=== PATIENT | male | born 1980 | race Caucasian/White ===

== ENCOUNTER 2016-09-04 22:53 | Inpatient (IN) | payer SELFPAY ==
--- NOTE | ~2016-09-04 | HP ---
Unit #: [id number] #: [id number] Patient: ANGY REEVES [id number] [place] [address] [id number] MR#: [id number] NAME: ANGY REEVES ROOM: P252 Age: 36 Sex: M Admission Date: 09/04/2016 : 1980 Attending Physician: Wayne Davila M.D. Admitting Physician: Wayne Davila M.D. Primary Care Physician: Primary Care Physician No HISTORY AND PHYSICAL HISTORY OF PRESENT ILLNESS Angy is a 36 year old admitted to [address] [place] [address] because of his drug use. He shoots heroin. PAST MEDICAL HISTORY Long history of opioid abuse to include IV heroin. PAST SURGICAL HISTORY Right shoulder. ALLERGIES No known drug allergies. SOCIAL HISTORY Smokes 1 pack per day. Denies alcohol. Admits to a long history of opioid abuse to include IV heroin. FAMILY HISTORY Medically noncontributory. REVIEW OF SYSTEMS CONSTITUTIONAL: No fever or chills. HEENT: Denies any sore throat, ear pain or runny nose. CARDIOVASCULAR: Denies chest pain, irregular heart rhythm or palpitations. CHEST: Denies shortness of breath or cough. No hemoptysis. GASTROINTESTINAL: Denies nausea, vomiting, diarrhea or chronic constipation. ENDOCRINE: Denies history of increased thirst or urination. No recent significant weight loss or gain. GENITOURINARY: Denies dysuria, frequency, or hematuria. SKIN: Denies any rashes. HEMATOLOGIC: Denies history of increased bleeding or bruising. MUSCULOSKELETAL: Denies any hot, swollen joints. No generalized muscle pain. NEUROLOGIC: Denies problems with vision or speech. No frequent, severe headaches. No numbness, tingling or weakness in any extremities. Denies loss of bladder or bowel control. CURRENT MEDICATIONS Detox protocol. PHYSICAL EXAMINATION GENERAL: Alert, well-nourished, in no apparent distress. Unit #: [id number] #: [id number] Patient: ANGY REEVES VITAL SIGNS: Blood pressure 130/82, heart rate 86, respirations 16, temperature 98.6. WEIGHT: 145. HEIGHT: 5 feet 10 inches. SKIN: Warm and dry without rash or lesion. HEENT: Normocephalic. TMs not viewed. Oral and nasal passages clear. Conjunctivae clear. PERRLA. EOMs intact. NECK: Supple without lymphadenopathy or thyromegaly. HEART: Regular rate and rhythm without murmur. LUNGS: Clear. ABDOMEN: Soft, nontender. : Not done. EXTREMITIES: No evidence of cyanosis, clubbing or edema. Moves all without focal deficit. NEUROLOGICAL: Grossly within normal limits. Cranial Nerves: II: Visual cedillo are intact. III, IV AND : Extraocular movements are intact. Pupils are equal, round and reactive to light. V: Facial sensation is grossly normal. VII: Facial movements and expression are normal. VIII: Auditory acuity grossly intact. IX, X: Uvula is midline. Phonation is normal. XI: Patient shrugs shoulders and turns head normally. XII: Tongue protrudes in the midline. Sensory and Motor Function: Sensory and motor sensation is grossly normal. Motor: moves all extremities well. Coordination: Gait is normal. Deep Tendon Reflexes: Intact. IMPRESSION Psychiatric admission. RECOMMENDATIONS PSYCHIATRIC: Per psychiatrist. MEDICAL: See no contraindications to participate in facility's activities. MEDICAL PROGNOSIS Good. MEDICAL CONDITION Stable. Dictated by... Yulia Najera P.A.-C. for [place] Jean/jose TD: 09/06/2016 16:58 JOB #: [id number] Unit #: [id number] #: [id number] Patient: ANGY REEVES HISTORY AND PHYSICAL X Yulia Najera X HISTORY AND PHYSICAL
--- NOTE | ~2016-09-04 | PA ---
Unit #: [id number] #: [id number] Patient: ANGY REEVES [id number] [place] [address] [id number] MR#: [id number] NAME: ANGY REEVES ROOM: P252 Age: 36 Sex: M Admission Date: 09/04/2016 : 1980 Date of Assessment: 09/05/2016 Attending Physician: Wayne Davila M.D. Admitting Physician: Wayne Davila M.D. Primary Care Physician: Primary Care Physician No PSYCHIATRIC ASSESSMENT DATE OF SERVICE 09/05/2016 INFORMANTS The patient, reliable; OLOP, reliable. CHIEF COMPLAINT Detox. HISTORY OF PRESENT ILLNESS Mr. Reeves is a 36-year-old man, who came in accompanied by his reporting 1 g of heroin IV daily and occasional use of benzodiazepines as well as morphine. The patient had a sober living period of about 10 months 3 years ago, but has been unable to maintain sobriety since then. He had some suicidal thoughts, but no intent or plan and was admitted primarily for detox. PAST PSYCHIATRIC HISTORY The patient has been admitted several times at [facility] for chemical dependence treatment and detox. He currently does not have any other psychiatric diagnosis and does not take any psychiatric medications. FAMILY PSYCHIATRIC HISTORY Both the patient's parents suffered from addictive disorders. SOCIAL HISTORY The patient has 12th grade education. Has been missing multiple days of work due to his ongoing drug use. He lives with his girlfriend and her 3 children, all under the age of 14. He says that he has had financial problems due to drug use and this has also strained his relationship with his girlfriend. PAST MEDICAL HISTORY No chronic medical problems. MEDICATIONS None currently. ALLERGIES No known medication allergies. SUBSTANCE USE HISTORY The patient reports heroin dependence as noted above. Unit #: [id number] #: [id number] Patient: ANGY REEVES MENTAL STATUS EXAMINATION Mr. Reeves presented as a mildly disheveled man, who appeared his stated age. He was polite and cooperative with the examination. Temperature was 98.6, blood pressure 131/83, respirations 18, and pulse 86. His speech was spontaneous and easily understood. His musculoskeletal examination was calm. His mood was mildly anxious with a congruent affect. He was alert and fully oriented. His memory and concentration were fair to good. His thought processes were goal directed with no active psychosis. He now denied suicidal ideation, intent, or plan. Insight and judgment were fair to good. Fund of knowledge and abstraction were fair to good. ASSETS AND LIABILITIES The patient knows local resources and presents voluntarily for treatment. Liabilities include impaired income, impaired social functioning. ADMITTING DIAGNOSES AXIS I: Opioid dependence, F11.23. AXIS II: No diagnosis. AXIS III: No diagnosis. AXIS IV: AXIS V: PSYCHIATRIC PLAN The patient was admitted and placed on the opioid detox protocol. We will monitor for parasuicidal behaviors, but the patient declined initiation of antidepressant treatment at this time. TREATMENT GOALS Establishment of sobriety, improvement in insight, and improvement in coping skills. DISCHARGE PLANNING Follow up with community mental health resources for chemical dependence. ESTIMATED LENGTH OF STAY 5 days. Dictated by... Wayne Davila M.D. FROILAN/sariah TD: 09/06/2016 04:48 JOB #: [id number] PSYCHIATRIC ASSESSMENT X Wayne Davila MD X PSYCHIATRIC ASSESSMENT
--- NOTE | ~2016-09-04 | PN ---
Unit #: [id number] #: [id number] Patient: ANGY REEVES [id number] [facility] [address] [place] [address] [id number] MR#: [id number] NAME: ANGY REEVES ROOM: [facility] Age: 36 Sex: M Admission Date: 09/04/2016 : 1980 Attending Physician: Wayne Davila M.D. Admitting Physician: Wayne Davila M.D. Primary Care Physician: Primary Care Physician Hanh BARRIOS PROGRESS NOTES DATE OF SERVICE: 09/07/2016 DISCUSSION Angy showed significant improvement today. His mood is congruent with his affect initially euthymic. He is alert and fully oriented with minimal detox symptoms. No psychosis or SI. ASSESSMENT Opioid dependence. PLAN Anticipate discharge tomorrow with followup through community mental health. Dictated by... [place] Patterson/sariah TD: 09/08/2016 19:02 JOB #: [id number] [facility] PROGRESS NOTES Page 1 of 1 X Wayne Davila MD PROGRESS NOTE
--- NOTE | ~2016-09-04 | DS ---
Unit #: [id number] #: [id number] Patient: ANGY REEVES [id number] [facility] [address] [place] [address] [id number] I MR#: [id number] NAME: ANGY REEVES ROOM: [facility] Age: 36 Sex: M Admission Date: 09/04/2016 : 1980 Discharge Date: 09/08/2016 Attending Physician: Wayne Davila M.D. Primary Care Physician: Primary Care Physician No DISCHARGE SUMMARY REASON FOR ADMISSION Angy is a 36-year-old man who came in accompanied by his reporting 1 g of heroin IV occasional use of benzodiazepines and morphine. The patient had brief suicidal thoughts, but no plan or intent. He was admitted for stabilization. DIAGNOSTIC STUDIES LABORATORY RESULTS: Laboratory studies were generally within normal limits. HOSPITAL COURSE The patient was admitted and placed on suicide precautions and the opioid detox protocol. He declined initiation of an antidepressant medication and his mood brightened considerably after admission. He tolerated detox with no significant adverse side effects and participated appropriately in unit groups and activities. On the date of discharge, he was able to contract for safety with no suicidal ideation, intent, or plan. DISCHARGE DIAGNOSES AXIS I: Opioid dependence with withdrawal, uncomplicated, F11.23. AXIS II: No diagnosis. AXIS III: No diagnosis. AXIS IV: AXIS V: PSYCHIATRIC PLAN Follow up with [facility] for chemical dependency treatment and resources. DISCHARGE MEDICATIONS None. CONDITION AT DISCHARGE Improved. PROGNOSIS Fair to good. DIET AND ACTIVITY Per primary care physician. Unit #: [id number] #: [id number] Patient: ANGY REEVES Dictated by... [place] Patterson/sariah TD: 09/09/2016 02:30 JOB #: [id number] DISCHARGE SUMMARY Page 1 of 1 X Wayne Davila MD X DISCHARGE SUMMARY
[2016-09-05 09:36] LABS: URINE APPEARANCE TURBID; URINE BILIRUBIN NEG (NEG); URINE BLOOD NEG (NEG); URINE COLOR DK YELLOW; URINE GLUCOSE NEG (NEG); URINE KETONE NEG (NEG); URINE LEUKOCYTE ESTERASE NEG (NEG); URINE NITRATE NEG (NEG); URINE PROTEIN NEG (NEG); URINE SPECIFIC GRAVITY 1.032 (1.003-1.035)
[2016-09-05 09:42] LABS: BASOPHIL# 0.1 X10e3 (0-0.3); BASOPHIL% 1.1 % (0-2.5); EOSINOPHIL# 0.4 X10e3 (0-0.7); EOSINOPHIL% 5.2 % (0.0-7.0); HEMATOCRIT 44.1 % (38.0-50.0); HEMOGLOBIN 14.7 gm/dL (13.0-16.0); LYMPHOCYTE# 3.5 X10e3 (1.0-3.5); LYMPHOCYTE% 50.9 % (17.0-45.0); MEAN CELL VOLUME 91.1 FL (83-96); MEAN CORPUSCULAR HEMOGLOBIN 30.5 PG (28-34); MEAN CORPUSCULAR HGB CONC 33.5 g/dL (30-36); MEAN PLATELET VOLUME 9.7 FL (6.5-11.5); MONOCYTE# 0.5 X10e3 (0-1.0); MONOCYTE% 7.9 % (3.0-12.0); NEUTROPHIL# 2.4 X10e3 (1.5-7.1); NEUTROPHIL% 34.9 % (40-75); PLATELET COUNT 193 X10e3 (140-420); RED BLOOD COUNT 4.84 X10e (3.90-5.60); RED CELL DISTRIBUTION WIDTH 12.4 % (11.0-15.5); WHITE BLOOD COUNT 6.8 X10e3 (4.0-10.5)
[2016-09-05 09:43] LABS: DIFF IND YES
[2016-09-05 09:46] LABS: THYROID STIMULATING HORMONE 0.94 uIU/ml (0.34-5.60)
[2016-09-05 09:53] LABS: ALBUMIN SERUM 3.7 g/dL (3.5-5.0); ALKALINE PHOSPHATASE 78 U/L (32-92); ALT (SGPT) 60 U/L (10-40); AST (SGOT) 54 U/L (10-42); BLOOD UREA NITROGEN 19 mg/dL (9-23); BUN/CREATININE RATIO 31.66; CALCIUM SERUM 9.4 mg/dL (8.4-10.2); CARBON DIOXIDE 29 mmol/L (22-31); CHLORIDE 102 mmol/L (100-111); CREATININE SERUM 0.6 mg/dL (0.6-1.4); GLOM FILT RATE Estimated ABOVE60 mL/min (>60); GLUCOSE FASTING 89 mg/dL (70-110); POTASSIUM 4.5 mmol/L (3.5-5.1); SODIUM 137 mmol/L (135-145)
[2016-09-05 09:54] LABS: FREE THYROXIN (T4) 1.04 ng/dL (0.58-1.64)
[2016-09-05 10:09] LABS: ANISOCYTOSIS SL; PLATELET ESTIMATE NORMAL (NORMAL)
[2016-09-05 10:22] LABS: AMPHETAMINE POS (NEG); BARBITURATES NEG (NEG); BENZODIAZEPINES POS (NEG); COCAINE POS (NEG); MARIJUANA POS (NEG); OPIATES POS (NEG); TRICYCLIC ANTIDEPRESSANTS NEG (NEG); U METHADONE NEG (NEG)
== END 2016-09-08 17:00 | disposition home or self-care (01) | DRG 897 ==
LOC: P2L 22:53
PROVIDERS: Psychiatry & Neurology Psychiatry
PROC: HZ2ZZZZ Detoxification Services for Substance Abuse Treatment (ICD-10-PCS; principal; 2016-09-05)
DX: F11.23 Opioid dependence with withdrawal (principal); F17.210 Nicotine dependence, cigarettes, uncomplicated
CPT/HCPCS: 80053; 80307; 81003; 84439; 84443; 85025; 86592